=== PATIENT | female | born 1950 | race Caucasian/White ===

== ENCOUNTER 2017-02-21 01:22 | Day surgery (SDC) | payer MEDICARE, OTHER ==
[~2017-02-21] VITALS: Ht 170.8 cm; Wt 125.0 kg
[2017-02-21] VITALS (18 sets, daily range): BP systolic 123–160; BP diastolic 50–86; PULSE 72–91; RESP 12–19; O2SAT 94–97
[~2017-02-21 01:22] MED LIST: ASPI-973 PO; ATOR40TA69 PO; CHOL10008 PO; CYCL10TA9 PO; DIPH25CA6 PO; LORA10CA PO
[2017-02-21 08:08] LABS: BASOPHILS % (AUTO) 0.4 % (0-3); EOSINOPHILS % (AUTO) 2.9 % (0-5); Mean Corpuscular Hemoglobin 30.5 pg (27.0-35.0); Mean Corpuscular Volume 89.8 fL (81-100); NEUTROPHILS % (AUTO) 53.9 % (40-74); Platelet Count 251 bil/L (150-400)
[2017-02-21 08:29] LABS: INR 0.99 ratio
[2017-02-21] MEDS ORDERED: Heparin 1,000 Units/500 mL NS Premix IV ONE (08:47)
[2017-02-21] MEDS ORDERED: Nitroglycerin 50,000 mcg/250 mL D5W Premix IV ONE (08:47)
[2017-02-21] MEDS ORDERED: Heparin 1,000 Unit/mL 10 mL Inj ONE (08:47)
[2017-02-21] MEDS ORDERED: Heparin 5,000 Units/500 mL NS Premix IV ONE ×2 (08:47→12:10)
[2017-02-21] MEDS ORDERED: fentaNYL-PF 50 mCg/mL 2 mL Inj ONE ×2 (09:26→12:02)
--- NOTE | 2017-02-21 10:15 | NUR ---
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 She is pleasant and amenable to waiting.Her is at the bedside with her.
[2017-02-21] MEDS ORDERED: Labetalol 5 mg/mL 20 mL Inj ONE (12:30)
--- NOTE | 2017-02-21 13:01 | PCM.CVCATH ---
Cardiac Cath Report Date of Service Feb 21, 2017 Primary Indication Dyspnea, abnormal stress test Procedure coronary angiography, left heart cath Vascular Access Right femoral arteryusing 6 Fr sheath, closure with manual hold. Diagnostic Catheters Left main: JL4, 6Fr RCA: JR4.0, 6 Fr Procedure Details Coronary angiography details: The patient was brought to the cardiac catheterization lab in the fasting state. Patient was laid supine on the cardiac catheterization table and the right groin was prepped and draped in the usual sterile fashion. One percent Xylocaine was infiltrated into the right femoral vessels. Next, a sheath was then placed in the right common femoral artery by the modified Seldinger technique. Guide wire was used to advance the catheter through the sheath and up into aortic sinuses. After coronary angiography was completed, guide wire was advanced through the catheter ahead of the tip of the catheter and the guide wire along with the catheter were pulled together out of the sheath. Medications/Fluoro Time Medications administered: 1.Fentanyl: 200 mcg IV 2. Midazolam: 2 mg IV Fluoroscopy Time: 2.8 minutes, 758 mGy Contrast (Isovue): 90 mls Blood loss: 10 mls Findings 1) Coronary angiography: Left dominance (probably) a. Left main is normal caliber with 60-70% stenosis distally b. LAD is normal caliber with 70-80% stenosis at the ostium and 60-70% in the proximal vessel. c. LCx is large caliber dominant vessel with ostial 80-90% stenosis and 50% stenosis proximally. The LCx becomes two large caliber obtuse marginal arteries without significant disease. The PDA is small caliber with no significant obstructive disease. d. RCA is a medium caliber non-dominant vessel with 70-80% tubular stenosis in the distal vessel. The distal vessel itself is very small caliber. 2) Left Heart catheterization: a. LVEDP is elevated at 35 mmHg. LV systolic pressure was 158mmHg. b. No significant transaortic gradient on catheter pull-back. 3) Right femoral angiogram: Right common femoral artery arteriotomy, below the inferior hypogastric artery. Complications There were no periprocedural complications identified. Summary Obstructive left main, left anterior descending, and dominant left circumflex artery disease. The RCA obstructive disease is very distal and involves a small caliber vessel that won't benefit from revascularization. Recommendations Refer to CT surgery for 2V CABG (LAD and LCx) Laura Mcdonald MD Feb 21, 2017 13:01
[2017-02-21] MEDS ORDERED: ROSU20TA27 PO (17:01)
[2017-02-21] MEDS ORDERED: METO25TA99 PO (17:01)
[2017-02-21] MEDS ORDERED: HYDR12.55 PO (17:01)
--- NOTE | 2017-02-21 19:38 | NUR ---
discharge instructions reviewed with patient and spouse.right groin remains dry and intact, no bleeding or hematoma. Pt and spouse will stay at [facility] as they live in [place] and have an 11:30 appt time tomorrow in [place] to meet with the surgeon.
== END 2017-02-21 23:59 | disposition home or self-care (01) ==
LOC: SOUO 01:22 → EDSTATUS 11:37 → SOUO 23:59
PROVIDERS: ATTEND Internal Medicine Cardiovascular Disease
DX: I25.10 Atherosclerotic heart disease of native coronary artery without angina pectoris (principal); I44.7 Left bundle-branch block, unspecified; I10 Essential (primary) hypertension; E78.5 Hyperlipidemia, unspecified; E66.01 Morbid (severe) obesity due to excess calories; Z68.41 Body mass index [BMI] 40.0-44.9, adult; Z87.891 Personal history of nicotine dependence; Z90.710 Acquired absence of both cervix and uterus; Z85.42 Personal history of malignant neoplasm of other parts of uterus
CPT/HCPCS: 36415; 80048; 85025; 85610; 93458; 99152; 99153; C1769; J1644; J2250; J3010; Q9967